=== PATIENT | female | born 1970 | race American Indian/Alaskan Native ===

== ENCOUNTER 2021-11-08 11:52 | Emergency (ER) | payer OTHER ==
[2021-11-08 12:09] VITALS: BP 116/76; PULSE 89; TEMP 98.1; BMI 29.7
[2021-11-08] MEDS ORDERED: IBUPROFEN 400 MG TABLET (FP) PO ONE ×2 (12:28→12:32)
== END 2021-11-08 13:17 | disposition home or self-care (01) ==
LOC: JERFT 11:52
DX: S83.92XA Sprain of unspecified site of left knee, initial encounter (principal); S60.032A Contusion of left middle finger without damage to nail, initial encounter; W01.0XXA Fall on same level from slipping, tripping and stumbling without subsequent striking against object, initial encounter
CPT/HCPCS: 73130-TC-LT-FY; 73130-TC-RT-FY; 73562-TC-LT-FY; 99284-25

== ENCOUNTER 2022-11-23 12:10 | Emergency (ER) | payer OTHER ==
[2022-11-23 12:16] VITALS: BP 121/86; PULSE 88; RESP 16; TEMP 97.8; BMI 36.6
== END 2022-11-23 12:56 | disposition home or self-care (01) ==
LOC: FER 12:10
DX: S16.1XXA Strain of muscle, fascia and tendon at neck level, initial encounter (principal); S50.11XA Contusion of right forearm, initial encounter; M54.2 Cervicalgia; M25.551 Pain in right hip; X58.XXXA Exposure to other specified factors, initial encounter
CPT/HCPCS: 99283-25